=== PATIENT | male | born 1990 | race Caucasian/White ===

== ENCOUNTER 2023-11-17 03:25 | Observation (INO) | payer BC, SELFPAY ==
[2023-11-17] VITALS (17 sets, daily range): BP systolic 117–168; BP diastolic 72–99; PULSE 50–87; RESP 13–23; TEMP 35.6–36.3; O2SAT 97–100; BMI 31.0
--- NOTE | ~2023-11-17 | CT_ITS ---
EXAMINATION: CT abdomen pelvis w con DATE: 11/17/2023 04:31 INDICATION: Epigastric abdominal pain. TECHNIQUE: Computed tomography (CT) of the abdomen and pelvis was performed with 100 mL Omnipaque 350 intravenous contrast. Automated exposure control and iterative reconstruction technique were employe d. The dose-length product was 897.82 mGy-cm. COMPARISON: None. FINDINGS: The visualized portions of the lung bases demonstrate mild atelectasis. No pleural effusion . The heart size is normal. No pericardial effusion. The liver and gallbladder are normal. Calcificat ions in the spleen are consistent with old granulomatous disease. The pancreas, adrenal glands, and k idneys are normal. There are appendicoliths in the appendix, which is dilated to 10 mm. There is fat stranding around the appendix. There is prominent fat in left inguinal canal that may be a hernia. Th ere are no pathologically enlarged lymph nodes. There is no free intraperitoneal fluid. There are chr onic bilateral L4 pars defects. There is mild thoracic spondylosis and moderate lumbar spondylosis. IMPRESSION: 1. Acute appendicitis. Reviewed, dictated and finalized at location A. IMPRESSION: 1. Acute appendicitis.
--- NOTE | 2023-11-17 03:31 | ED.ABDPAIN ---
HPI - Abdominal Pain General Chief Complaint: Abdominal Pain Stated Complaint: abd pain, vomiting Time Seen by Provider: 11/17/23 03:30 History of Present Illness HPI narrative: Patient is a 33-year-old male who presents to the emergency department this morning complaining of periumbilical abdominal pain which started around 8:00 p.m. last night. Patient states that initially he thought it was due to his constipation as he has chronic constipation and usually goes a few days without having a bowel movement and did not want to come to the emergency department for constipation. Patient then go called and found out that a lot of his symptoms are consistent with an acute appendicitis so he finally decided to come to the emergency department. Patient states that since 8:00 p.m. he has vomited approximately 5 times and states that normally with his constipation pain he never vomits. He denies any sick contacts at and denies any history of kidney stones or urinary symptoms including dysuria or hematuria. Patient denies any fevers or chills at home. There are no other modifying, alleviating, or precipitating factors at this time. Related Data Allergies Allergy/AdvReac Type Severity Reaction Status Date / Time No Known Allergies Allergy Mild Verified 11/17/23 03:39 Review of Systems Review of Systems: All systems are reviewed and are negative unless stated otherwise in the HPI. PMFSH Comments Denies any past medical or surgical history, denies any pertinent family history and denies any alcohol abuse or illicit drug use. Exam Narrative: General: Alert, awake, afebrile, in no acute distress. HEENT: PERRL, no rhinorrhea, no post nasal drip, oropharynx clear. Neck: Trachea midline, no JVD, no lymphadenopathy. Cardiovascular: Regular rate and rhythm, no murmurs, rubs or gallops, no peripheral edema. Respiratory: Clear to auscultation bilaterally, no tachypnea, no wheezing, no rhonchi, no rubs, no respiratory distress. Abdomen: Soft, tenderness to palpation over the periumbilical region, nondistended, no rebound, no guarding, no peritoneal signs. Musculoskeletal: No joint swelling or deformity, normal muscle tone. Skin: No rashes or petechia, no signs of infection. Psychiatric: Alert and oriented, normal behavior and judgment for situation. Neurological: Alert and oriented to person, place, and time. Follows all commands. No focal deficits, speech is clear and fluent. Course Vital Signs Vital signs: Vital Signs Temperature 97.4 F L 11/17/23 03:29 Pulse Rate 65 11/17/23 03:29 Respiratory Rate 17 11/17/23 03:29 Blood Pressure 151/91 H 11/17/23 03:29 Pulse Oximetry 100 11/17/23 03:29 Oxygen Delivery Room Air 11/17/23 03:29 Temperature 97.4 F L 11/17/23 03:29 Pulse Rate 50 L 11/17/23 05:02 Respiratory Rate 16 11/17/23 05:02 Blood Pressure 128/87 11/17/23 05:02 Pulse Oximetry 99 11/17/23 05:02 Oxygen Delivery Room Air 11/17/23 03:29 MDM - Abdominal Pain MDM Narrative Medical decision making narrative: The patient was evaluated by myself in the emergency department. History is obtained from patient who is an independent historian and physical exam was performed. External medical records were reviewed at this time. IV was established and pertinent tests were ordered. Patient was administered 4 mg of IV Zofran for nausea and 2 mg of IV morphine for pain. Laboratory results obtained revealing a leukocytosis of 21, otherwise unremarkable. Imaging studies obtained included CT abdomen and pelvis with IV contrast which was independently interpreted by me revealing an acute appendicitis, which is pending final radiology interpretation. At this time, patient was made NPO, started on maintenance fluids with normal saline at rate of 100 cc per hour and started on IV antibiotics with IV Flagyl and Rocephin. The on-call general surgeon, Dr. Ritter was contacted at [id number] and case was discussed with
[2023-11-17 03:50] LABS: Hematocrit 45.7 % (42.0-52.0); Hemoglobin 15.2 g/dL (14.0-18.0); Mean Corpuscular HGB Conc 33.3 g/dl (32-36); Mean Corpuscular Hemoglobin 27.5 pg (26-34); Mean Corpuscular Volume 82.8 fl (80-100); Mean Platelet Volume 9.2 fl (7.4-10.4); Platelet Count Result 329 k/mm3 (150-375); Red Blood Count 5.52 M/mm3 (4.6-6.20); Red Cell Distribution Width 13.4 % (11.5-14.5); White Blood Count 21.1 K/mm3 (4.5-10.0)
[2023-11-17 03:51] LABS: Bacteria Urine None Seen /hpf; Non Pathogenic Casts 0-2; RBC Urine 0-2 /hpf (0-2); Squamous Epithelial Cell Urine None Seen /hpf (Few); WBC Urine 0-5 /hpf (0-3)
[2023-11-17 03:57] LABS: Appearance Urine Clear (Clear); Color Urine Yellow (Yellow); pH Urine 5.5 (5.0-9.0)
[2023-11-17 03:58] LABS: Add Urine Microscopic? YES; Bilirubin Urine 1+ (Negative); Blood Urine Negative (Negative); Glucose Urine UA Negative (Negative); Ketones Urine Negative (Negative); Leukocyte Esterase Ur Negative LEU/UL (Negative); Nitrate Urine Negative (Negative); Protein Urine Negative (Negative); Specific Grav Ur >= 1.030 (1.001-1.035); Urobilinogen Urine 0.2 mg/dL (<2.0)
[2023-11-17 04:01] LABS: Alanine Aminotransferase 30 U/L (6-50); Albumin Level 4.9 g/dL (3.5-5.1); Alkaline Phosphatase 54 U/L (38-126); Anion Gap 7 mmol/L (4-12); Aspartate Amino Transferase 28 U/L (17-59); Bilirubin,Total 0.7 mg/dL (0.2-1.3); Blood Urea Nitrogen 11 mg/dL (9-20); Calcium 9.8 mg/dL (8.4-10.2); Carbon Dioxide 28 mmol/L (22-30); Chloride 105 mmol/L (98-107); Estimated CRCL calculation 140 ml/min; Estimated Glomerular Filt Rate > 60; Glucose 138 mg/dL (65-110); Lipase 53 U/L (23-300); Potassium 3.6 mmol/L (3.4-5.0); Sodium 140 mmol/L (137-145)
[2023-11-17 04:11] LABS: Monocytes Absolute Manual 0.42 K/mm3 (0.1-0.90); Monocytes Percent Manual 2 % (3-9); Total Cells Counted 100
[2023-11-17 04:12] LABS: Band Neutrophils Percent 9 % (0-6); Lymphocytes Absolute Manual 1.89 K/mm3 (1.1-4.5); Lymphocytes Percent Manual 9 % (18-44); Neutrophils Absolute Manual 18.77 K/mm3 (1.3-6.7); Neutrophils Percent Manual 80 % (46-73)
[2023-11-17 04:13] LABS: Platelet Estimate Adequate (Adequate); Schistocytes None Seen
[2023-11-17] MEDS: ONDANSETRON INJ 4 MG/2 ML VIAL IV PUSH (04:13)
[2023-11-17] MEDS: MORPHINE SULFATE (*CRX) 2 MG/ML INJ IV PUSH ×2 (04:13→09:50)
[2023-11-17] MEDS: metroNIDAZOLE 500 MG/ISO 100ML 500 MG/100 ML BAG 100 MG IVPB ×2 (05:48→14:00)
[2023-11-17] MEDS: SODIUM CHLORIDE 0.9% IV 1,000 ML 100 ML IV CONT (06:56)
--- NOTE | 2023-11-17 09:22 | PM.IMHP ---
H&P: HPI History of Present Illness Date/Time: 11/17/23 09:22 Chief Complaint: RLQ abdominal pain Narrative: This is a 33-year-old man who presented to the ER last night with complaints of right lower quadrant abdominal pain. His abdominal pain started around 9:00 p.m. last night. He reports the pain is mostly located in the right lower quadrant and also some mild periumbilical pain. His abdominal pain continued to worsen throughout the night. He tried taking a laxative in case he was constipated, but had no relief. He endorses nausea and vomiting when his pain became more severe. He decided to come into the ER early this morning due to the persistent pain. Denies ever having this pain in the past. [place] [id number] scan of the abdomen and pelvis showed acute appendicitis with appendicoliths, no perforation or abscess. Our service was contacted by the ED physician. He was admitted and given 1 dose of IV ceftriaxone and metronidazole this morning. He has been made NPO and is currently on IV fluids. He is now seen on the medical floor. Review of Systems Review of Systems: All systems reviewed & are unremarkable except as noted in HPI and below PMFSH Past Medical History Medical History No pertinent past medical history Surgical History Surgical History History of hand surgery Family History Family History Other No pertinent family history Social History Social History Smoking status: Current every day smoker Tobacco type: e-cigarettes/vaping Alcohol intake: never Substance use: current Substance use type: marijuana Do You Feel Safe in your Home?: Yes Lack of Transportation: No Lack of Food: Never True Current Housing: I Have Housing Concerned About Future Housing: No Difficulty Paying Gas/Electric Bills: No Difficulty Paying for Meds: No Currently Unemployed: No Education: High School Diploma/GED Difficulty w/ Childcare or Family Care: No Spiritual care concerns: No Meds Home Medications and Allergies Home Medications Medication Instructions Recorded Confirmed Type amoxicillin 875 mg tablet 875 mg PO BID 11/17/23 11/17/23 History Allergies Allergy/AdvReac Type Severity Reaction Status Date / Time No Known Allergies Allergy Mild Verified 11/17/23 03:39 Vital Signs Vital Signs - 24 hr 11/17/23 03:29 11/17/23 05:02 11/17/23 05:59 Temperature 97.4 F L Pulse Rate 65 50 L 54 L Respiratory Rate 17 16 21 H Blood Pressure 151/91 H 128/87 133/74 Pulse Oximetry 100 99 98 Oxygen Delivery Room Air 11/17/23 06:14 11/17/23 06:27 Temperature 97.3 F L Pulse Rate 61 Respiratory Rate 13 Blood Pressure 131/74 Pulse Oximetry 100 100 Oxygen Delivery Room Air Exam Const: General: comfortable and no acute distress Nutritional Appearance: average body habitus Orientation/consciousness: patient oriented x3 HENMT: Head: normocephalic and atraumatic Ears: hearing grossly normal bilaterally Mouth: Yes moist mucous membranes Eyes: General: appearance normal, both eyes and all related structures Pupils: Equal, round and reactive pupils present Neck: Neck: normal visual inspection and full ROM Resp: Effort & Inspection: no respiratory distress Auscultation: clear to auscultation bilaterally Cardio: Rate: regular rate Rhythm: regular rhythm Heart sounds: S1 normal heart sound present and S2 normal heart sound present Peripheral pulses: Peripheral pulses 2+ throughout GI: Inspection: non-distended and no visible herniation GI Palp: Yes Soft to palpation, Yes Tenderness to palpation present (GI) (TTP in RLQ, pain in RLQ with palpation of LLQ), No Guarding due to palpation present (GI), Yes No hepatosp
[2023-11-17] MEDS: LACTATED RINGERS 1,000 ML 150 ML IV CONT (09:51)
[2023-11-17] MEDS: LACTATED RINGERS 1,000 ML 30 ML IV CONT ×2 (12:00→13:13)
--- NOTE | 2023-11-17 12:07 | WPDHPUPDATE1 ---
History and Physical Update Update Date/Time: 11/17/23 12:07 History and Physical has been reviewed, including an updated exam of the patient. There are NO changes in the patient's condition. Risks, benefits, and alternatives have been discussed and questions answered. Patient agrees to proceed with procedure.
--- NOTE | 2023-11-17 12:11 | WPDANESEPPF ---
Anes - Initial Pre Proc Eval Procedure: Operation Date: 11/17/23 12:30 Proposed Procedures p Laparoscopic Appendectomy - Jude Ritter DO Date/Time: 11/17/23 12:11 Surgeon: Jude Ritter DO Pre Op Diagnosis: Acute Appy Patient Data Age: 33 Gender: M Height: 1.88 m Weight: 109.7 kg Last Vital Signs Temp 36.3 C L 11/17/23 06:14 Pulse 61 11/17/23 06:14 Resp 13 11/17/23 06:14 BP 131/74 11/17/23 06:14 Pulse Ox 100 11/17/23 06:27 O2 Del Method Room Air 11/17/23 09:50 Allergies Allergy/AdvReac Type Severity Reaction Status Date / Time No Known Allergies Allergy Mild Verified 11/17/23 11:38 Home Medications Medication Instructions Recorded Confirmed Type amoxicillin 875 mg tablet 875 mg PO BID 11/17/23 11/17/23 History Laboratory Tests 11/17/23 03:38 WBC 21.1 H K/mm3 (4.5-10.0) RBC 5.52 M/mm3 (4.6-6.20) Hgb 15.2 g/dL (14.0-18.0) Hct 45.7 % (42.0-52.0) MCV 82.8 fl (80-100) MCH 27.5 pg (26-34) MCHC 33.3 g/dl (32-36) RDW 13.4 % (11.5-14.5) Plt Count 329 k/mm3 (150-375) MPV 9.2 fl (7.4-10.4) Immature Gran % (Auto) Not Reportable Neut % (Auto) Not Reportable Lymph % (Auto) Not Reportable [place] % (Auto) Not Reportable Eos % (Auto) Not Reportable Baso % (Auto) Not Reportable Lymph # (Auto) Not Reportable [place] # (Auto) Not Reportable Eos # (Auto) Not Reportable Baso # (Auto) Not Reportable Abs Immat Gran (auto) Not Reportable Absolute Neuts (auto) Not Reportable Absolute Nucleated RBC Not Reportable Total Counted 100 Neutrophils % (Manual) 80 H % (46-73) Band Neutrophils % 9 H % (0-6) Lymphocytes % (Manual) 9 L % (18-44) Monocytes % (Manual) 2 L % (3-9) Nucleated RBC % Not Reportable Abs Neuts (Manual) 18.77 H K/mm3 (1.3-6.7) Abs Lymphs (Manual) 1.89 K/mm3 (1.1-4.5) Abs Monocytes (Manual) 0.42 K/mm3 (0.1-0.90) Platelet Estimate Adequate (Adequate) Schistocytes None seen Sodium 140 mmol/L (137-145) Potassium 3.6 mmol/L (3.4-5.0) Chloride 105 mmol/L (98-107) Carbon Dioxide 28 mmol/L (22-30) Anion Gap 7 L mmol/L (4-12) BUN 11 mg/dL (9-20) Creatinine 0.90 mg/dL (0.7-1.3) Estim Creat Clear Calc 140 ml/min Estimated GFR > 60 (59 - ) Glucose 138 H mg/dL (65-110) Calcium 9.8 mg/dL (8.4-10.2) Total Bilirubin 0.7 mg/dL (0.2-1.3) AST 28 U/L (17-59) ALT 30 U/L (6-50) Alkaline Phosphatase 54 U/L (38-126) Total Protein 8.0 g/dL (6.3-8.2) Albumin 4.9 g/dL (3.5-5.1) Lipase 53 U/L (23-300) Urine Color Yellow (Yellow) Urine Appearance Clear (Clear) Urine pH 5.5 (5.0-9.0) Ur Specific [place] >= 1.030 (1.001-1.035) Urine Protein Negative mg/dL (Negative) Urine Glucose (UA) Negative mg/dL (Negative) Urine Ketones Negative mg/dL (Negative) Ur Blood (Man) Negative (Negative) Urine Nitrate Negative (Negative) Urine Bilirubin 1+ H (Negative) Urine Urobilinogen 0.2 mg/dL (<2.0) Leukocyte Esterase Rfl Negative MACY/UL (Negative) Urine RBC 0-2 /hpf (0-2) Urine WBC 0-5 /hpf (0-3) Ur Squamous Epith Cells None seen /hpf (Few) Urine Bacteria None seen /hpf Urine Casts 0-2 Patient hx anesthesia problems: none Family hx anesthesia problems: none Results Review: All pre-operative results and documents have been reviewed as part of the pre-operative evaluation. PMFSH Past Medical History Medical History Overweight Smoker Surgical History Surgical History History of hand surgery Family History Family History Other No pertinent family history Social His
[2023-11-17] MEDS: BUPIVACAINE/EPINEPHRINE 0.5% 50 ML VIAL 30 ML INFILTRATE (12:43)
--- NOTE | 2023-11-17 13:13 | W.PM.PROC2 ---
Procedure Note - Detailed Date of Procedure 11/17/23 Pre-op Diagnosis Acute Appendicitis Post-op Diagnosis Same Procedure Performed Laparoscopic appendectomy Surgeon Jude Ritter, DO Anesthesia General and Local (0.5% bupivicaine with epinephrine) Indications This is a 33-year-old man who presented with right lower quadrant abdominal pain that started last night. He states he was having some vague periumbilical and epigastric pain that eventually localized to the right lower quadrant. In the emergency department he was found to have an elevated white blood count and CT evidence of acute appendicitis. Discussions were made with the patient about treatment options and decision was made to proceed with laparoscopic appendectomy, possible open. Findings Laparoscopic appendectomy was performed. The patient was found to have acute appendicitis with a dilated and indurated appendix. The base of the appendix appeared healthy and viable. There was no evidence of perforation or abscess. Appendix was removed and sent to the lab for pathology. No other intra-abdominal abnormalities were noted. Description of Procedure Procedure as well as risks, benefits, and alternatives were explained to the patient. The patient agreed to proceed. Written consent was obtained and placed in chart prior to procedure. The patient was brought back to surgical suite. He was placed supine on operating table. Time-out was done to confirm the patient and procedure. The patient was then intubated by the Anesthesia Department. His abdomen was prepped and draped in sterile fashion using chlorhexidine prep. A 5 mm incision was made just to the left of the patient's umbilicus and a 5 mm Optiview trocar was advanced through the abdominal layers under direct visualization. Once inside the peritoneal cavity, carbon dioxide insufflation was used to create a pneumoperitoneum. The camera was inserted and the abdomen was inspected. No immediate abnormalities were identified. The patient was then placed in slight Trendelenburg position and rotated to the left. A 5 mm incision was made in the suprapubic region in midline and a 5 mm trocar was inserted under direct visualization. A 12 mm incision was made in the left lower quadrant and a 12 mm trocar was inserted under direct visualization. The right lower quadrant was carefully inspected. The cecum was identified and then this was traced back to the appendix. The appendix was identified and grasped at the mesoappendix and lifted anteriorly. Careful blunt dissection was carried out at the base of the appendix through the mesoappendix using a [place] grasper. An Endo-GEO 45 mm blue load stapler was then advanced across the base of the appendix and clamped and fired. A white reload was then clamped across the mesoappendix and fired. This freed up our appendix completely. It was then placed in an EndoCatch bag and removed through the left lower quadrant port. The staple lines were then inspected. Hemostasis appeared adequate and the staple lines appeared secure. The area was then irrigated with sterile saline. The pelvis was then carefully inspected and irrigated with sterile saline as well and the remainder of the abdomen was carefully inspected. The patient was then flattened out in bed. One final inspection was made around the abdominal cavity and no other abnormalities were seen. The left lower quadrant port was removed and a Chi-Yifan cone was used to approximate the fascia with an 0 Vicryl simple interrupted suture. The remaining ports were then removed under direct visualization. The camera was removed and the pneumoperitoneum was released. 0.5% bupivacaine with epinephrine was infiltrated locally around each of the incisions. The skin of the incisions was then approximated using 4-0 Monocryl subcuticular suture and Exofin glue was applied on top. The patient was then awakened from anesthesia, extubated, and transferred
--- NOTE | 2023-11-17 13:18 | PM.DS ---
DS: Admitting Diagnosis Discharge Date 11/17/2023 Admitting Diagnosis Acute appendicitis DS: Discharge Diagnosis Discharge Diagnosis (1) Acute appendicitis with localized peritonitis, without perforation or abscess: Qualifiers: Appendicitis gangrene presence: without gangrene Qualified Code(s): K35.30 - Acute appendicitis with localized peritonitis, without perforation or gangrene Code(s): K35.30 - Acute appendicitis with localized peritonitis, without perforation or gangrene Status: Acute DS: Summary Hospital Course Reason for hospitalization: Acute appendicitis Hospital Course: This is a 33-year-old male who presented to the emergency department this morning with right lower quadrant abdominal pain. He was found to an elevated white blood count and CT showed evidence of acute appendicitis. He underwent laparoscopic appendectomy on 11/17/2023. Surgery was uncomplicated and he was returned to surgical floor postoperatively. His diet and activity were advanced as tolerated. He was discharged home once his pain was adequately controlled, vitals remained stable, he was tolerating a regular diet, and he was ambulating in halls. Status at Discharge Functional status at discharge: independent ambulation Overall status at discharge: patient is progressing back to baseline Time Spent with Patient Time attestation: Total time spent providing and/or coordinating discharge services: Time spent: Less than 30 minutes Exam Const: General: comfortable and no acute distress Resp: Effort & Inspection: normal respiratory effort Cardio: Rate: regular rate Rhythm: regular rhythm GI: Inspection: non-distended and incision (Intact with glue) DS: Data Data Completed and Pending Pending studies at discharge: Pending at discharge 11/17/23 12:41 Surgical [PTH] Routine Labs on day of discharge: Labs from last 24 hours 11/17/23 03:38 WBC 21.1 H RBC 5.52 Hgb 15.2 Hct 45.7 MCV 82.8 MCH 27.5 MCHC 33.3 RDW 13.4 Plt Count 329 MPV 9.2 Immature Gran % (Auto) Not Reportable Neut % (Auto) Not Reportable Lymph % (Auto) Not Reportable [place] % (Auto) Not Reportable Eos % (Auto) Not Reportable Baso % (Auto) Not Reportable Lymph # (Auto) Not Reportable [place] # (Auto) Not Reportable Eos # (Auto) Not Reportable Baso # (Auto) Not Reportable Abs Immat Gran (auto) Not Reportable Absolute Neuts (auto) Not Reportable Absolute Nucleated RBC Not Reportable Total Counted 100 Neutrophils % (Manual) 80 H Band Neutrophils % 9 H Lymphocytes % (Manual) 9 L Monocytes % (Manual) 2 L Nucleated RBC % Not Reportable Abs Neuts (Manual) 18.77 H Abs Lymphs (Manual) 1.89 Abs Monocytes (Manual) 0.42 Platelet Estimate Adequate Schistocytes None seen Sodium 140 Potassium 3.6 Chloride 105 Carbon Dioxide 28 Anion Gap 7 L BUN 11 Creatinine 0.90 Estim Creat Clear Calc 140 Estimated GFR > 60 Glucose 138 H Calcium 9.8 Total Bilirubin 0.7 AST 28 ALT 30 Alkaline Phosphatase 54 Total Protein 8.0 Albumin 4.9 Lipase 53 Urine Color Yellow Urine Appearance Clear Urine pH 5.5 Ur Specific [place] >= 1.030 Urine Protein Negative Urine Glucose (UA) Negative Urine Ketones Negative Ur Blood (Man) Negative Urine Nitrate Negative Urine Bilirubin 1+ H Urine Urobilinogen 0.2 Leukocyte Esterase Rfl Negative Urine RBC 0-2 Urine WBC 0-5 Ur Squamous Epith Cells None seen Urine Bacteria None seen Urine Casts 0-2 Imaging Radiologist's impression: ITS Impressions Abdomen/Pelvis CT 11/17/23 06:50 IMPRESSION: 1. Acute appendicitis. Discharge Plan Discharge Attending physician on discharge: Jude Ritter Consulting providers: Samantha Mcguire; Justin Mai V.; Italo Ashley Discharging Clinician: Jude Ritter Anticipated Discharge Date/Time: 11/17/23 17:00 Patient Disposition: Home, Self-Care Activity: other - see disch
== END 2023-11-17 17:11 | disposition home or self-care (01) ==
LOC: ANHED 05:47 → ANH3MEDSUR 06:04
PROVIDERS: Admitting Provider Surgery; Emergency Provider Emergency Medicine; PCP Family Medicine Sports Medicine; Visit Provider Surgery
PROC: 0DTJ4ZZ Resection of Appendix, Percutaneous Endoscopic Approach (ICD-10-PCS; CPT 44970; principal; 2023-11-17 12:30)
DX: K35.32 Acute appendicitis with perforation, localized peritonitis, and gangrene, without abscess (principal); F17.290 Nicotine dependence, other tobacco product, uncomplicated; F12.90 Cannabis use, unspecified, uncomplicated
CPT/HCPCS: 44970; 36415; 74177; 80053; 81001; 83690; 85025; 88304; 96365; 96367; 96375; 96376; 99285; G0378; J0696; J1100; J1170; J1836; J2250; J2270; J2405; J2704; J3010; J7030; J7120; Q9967

== ENCOUNTER 2023-12-06 17:29 | Emergency (ER) | payer BC, SELFPAY ==
[2023-12-06 17:30] VITALS: BP 140/95; PULSE 113; RESP 18; TEMP 36.4; O2SAT 100
--- NOTE | 2023-12-06 19:27 | PC.NURSE ---
called patient from waiting room x2, no answer. LWBS
== END 2023-12-06 19:27 | disposition left against medical advice (07) ==
LOC: ANHED 19:41
PROVIDERS: PCP Family Medicine Sports Medicine
DX: R11.2 Nausea with vomiting, unspecified (principal)
CPT/HCPCS: 99199